=== PATIENT | male | born 1995 | race Two or more races ===

== ENCOUNTER → 2023-04-21 | Emergency (ER) | payer OTHER ==
[~2023-04-21] VITALS: Ht 180.3 cm; Wt 81.6 kg
[2023-04-21 17:47] LABS: HEMOGLOBIN 15.6 g/dL (13-16.00); MEAN CELL VOLUME 88.7 fL (80.0-100.00); MEAN CORPUSCULAR HEMOGLOBIN 30.8 pg (27.00-32.0); MEAN CORPUSCULAR HGB CONC 34.8 g/dl (32.0-36.0); PLATELET COUNT 183 K/uL (150-450); RED BLOOD COUNT 5.07 M/uL (4.00-6.00); RED CELL DISTRIBUTION WIDTH 14.1 % (11.5-14.5)
== END | disposition home or self-care (01) ==
LOC: ER 13:37
PROVIDERS: General Practice
DX: B02.8 Zoster with other complications (principal); L03.211 Cellulitis of face